=== PATIENT | male | born 1960 | race Caucasian/White ===

== ENCOUNTER 2025-06-26 17:30 | Emergency (ER) | payer OTHER ==
--- NOTE | 2025-06-26 18:23 | EDPHYS ---
Physician Documentation [facility] Name: Antony Bhagat Jr Age: 65 yrs Sex: Male : 1960 Arrival Date: 06/26/2025 Time: 17:30 Bed 4 Private MD: ED Physician Shadi Marie HPI: 06/26 17:53 This 65 yrs old Male presents to ER via Ambulatory with complaints of Leg Swelling. cr8 17:53 Patient is a 65-year-old male with a history of varicose veins that comes in emergency cr8 room complaining of left lower leg swelling. Reports several days ago he had a ruptured varicose vein. Reports it stopped bleeding. States he then went to his mother's house that she noticed his left lower leg was more swollen than the right. He denies pain. There is no warmth erythema or edema. No recent surgeries immobilization. Denies history of cancer. Ambulatory. Denies any traumatic injury. Neurovascular status intact distally.. Historical: - Allergies: 17:49 No Known Allergies; me1 - PMHx: 17:49 Hypercholesterolemia; me1 - PSHx: 17:49 Repair of inguinal hernia; bicep tendon repair; me1 - Immunization history:: Adult Immunizations up to date. - Infectious Disease History:: Denies. - Social history:: Smoking status: Patient denies any tobacco usage or history of. ROS: 17:53 Constitutional: as per HPI cr8 Exam: 17:53 Constitutional: This is a well developed, well nourished patient who is awake, alert, cr8 and in no acute distress. Skin: Warm, dry with normal turgor. Normal color with no rashes, no lesions, and no evidence of cellulitis. MS/ Extremity: Pulses equal, no cyanosis. Neurovascular intact. Full, normal range of motion. Left lower extremity is mildly larger than the left. No pitting edema. The edema is located to the left lateral calf region. No other edema noted on examination. Vascular status intact. He has diffuse varicose veins to bilateral feet and ankles. He has no warmth erythema. Homans' sign is negative. Neuro: Awake and alert, GCS 15, oriented to person, place, time, and situation. Cranial nerves II-XII grossly intact. Motor strength 5/5 in all extremities. Sensory grossly intact. Vital Signs: 17:47 BP 148 / 109; Pulse 81; Resp 16; Temp 98.2; Pulse Ox 97% ; Weight 95.25 kg; Height 6 me1 ft. 0 in. ; Pain 0/10; 18:41 BP 132 / 89; Pulse 75; Resp 18; Temp 97.9; Pulse Ox 99% on R/A; ph 17:47 Body Mass Index 28.48 (95.25 kg, 182.88 cm) me1 17:47 Pain Scale: Adult me1 MDM: 17:39 Medical Screening Exam initiated cr8 18:17 Data reviewed: vital signs, nurses notes, radiologic studies, doppler. Test considered cr8 but Not performed: Labs: Considered doing labs but he has no evidence of DVT on examination so labs will not be beneficial in this situation. ED course: Patient came in for left lower extremity edema/swelling. Differential includes DVT, chronic venous insufficiency, cellulitis, sprain strain, traumatic injury. Ordered a Doppler which was negative for acute DVT. On examination there is no evidence of cellulitis and there is no warmth erythema tenderness to palpation. Patient has no history of CHF so do not suspect CHF exacerbation or lymphedema. No emergent condition identified at time of discharge. Advised to wear stockings follow-up with PCP. Discussed strict return precautions.. 06/26 17:45 Order name: US Extremity Venous Unilateral Ltd; Complete Time: 19:01 cr8 Administered Medications: No medications were administered Disposition Summary: 06/26/25 18:22 Discharge Ordered Notes: Location: Home cr8 Condition: Stable cr8 Diagnosis - Varicose veins of left lower extremities with other complications cr8 - Localized edema cr8 Followup: cr8 - With: Private Physician - When: 1 week - Reason: Recheck today's complaints, Re-evaluation by your physician, Reevaluate your blood pressure and further treatment of your leg edema Followup: cr8 - With: Emergency Department - When: - Reason: If symptoms return, Trouble breathing, Worsening of condition, Chest pain Discharge Instructions: - Discharge Summary Sheet cr8 - Varicose Veins cr8 - Bleeding Varicose Veins cr8 - Peripheral Edema cr8 Forms: - Medication Reconciliation Form cr8 - Patient Portal Instructions cr8 - Leadership Thank You Letter cr8 Signatures: Dispatcher [employer] Nano Chong RN RN me1 [place], Christopher, [employer] INSTRUCTOR [employer] INSTRUCTOR cr8
--- NOTE | 2025-06-26 18:23 | ER ---
Nurse's Notes [facility] Name: Antony Bhagat Jr Age: 65 yrs Sex: Male : 1960 Arrival Date: 06/26/2025 Time: 17:30 Bed 4 Private MD: Diagnosis: Varicose veins of left lower extremities with other complications;Localized edema Presentation: 06/26 17:47 Chief complaint: Patient states: he had a vericose vein bust on his medial left lower me1 leg after a shower on Tuesday night. Able to get the bleeding to stop with pressure. Noticed today that he has some swelling to LLE. No redness, warmth or pain noted. Coronavirus screen: Vaccine status: Patient reports receiving the 2nd dose of the covid vaccine. Ebola Screen: No symptoms or risks identified at this time. Initial Sepsis Screen: Does the patient meet any 2 criteria? No. Patient's initial sepsis screen is negative. Does the patient have a suspected source of infection? No. Patient's initial sepsis screen is negative. Risk Assessment: Do you want to hurt yourself or someone else? Patient reports no desire to harm self or others. Onset of symptoms was June 22, 2025. 17:47 Method Of Arrival: Ambulatory wy1 17:47 Acuity: JIMBO 4 me1 Historical: - Allergies: 17:49 No Known Allergies; me1 - PMHx: 17:49 Hypercholesterolemia; me1 - PSHx: 17:49 Repair of inguinal hernia; bicep tendon repair; me1 - Immunization history:: Adult Immunizations up to date. - Infectious Disease History:: Denies. - Social history:: Smoking status: Patient denies any tobacco usage or history of. Screenin:55 [facility] ED Fall Risk Assessment (Adult) History of falling in the last 3 months, ph including since admission No falls in past 3 months (0 pts) Confusion or Disorientation No (0 pts) Intoxicated or Sedated No (0 pts) Impaired Gait No (0 pts) Mobility Assist Device Used No (0 pt) Altered Elimination No (0 pt) Score/Fall Risk Level 0 - 2 = Low Risk Oriented to surroundings, Maintained a safe environment, Hourly rounding (assess needs \T\ fall precautionary measures) done. Abuse screen: Denies threats or abuse. Denies injuries from another. Nutritional screening: No deficits noted. Tuberculosis screening: No symptoms or risk factors identified. Assessment: 17:55 General: Appears in no apparent distress. comfortable, well groomed, Behavior is calm, ph cooperative, appropriate for age. 17:59 Pain: Denies pain. Neuro: Level of Consciousness is awake, alert, obeys commands, ph Oriented to person, place, time, situation. Cardiovascular: Capillary refill < 3 seconds in bilateral fingers Patient's skin is warm and dry. Cardiovascular: Edema is 1+ to left midcalf and left ankle. Respiratory: Airway is patent Respiratory effort is even, unlabored. Derm: Skin is pink, warm \T\ dry. Musculoskeletal: Circulation, motion, and sensation intact. Range of motion: intact in all extremities. Vital Signs: 17:47 BP 148 / 109; Pulse 81; Resp 16; Temp 98.2; Pulse Ox 97% ; Weight 95.25 kg; Height 6 me1 ft. 0 in. ; Pain 0/10; 18:41 BP 132 / 89; Pulse 75; Resp 18; Temp 97.9; Pulse Ox 99% on R/A; ph 17:47 Body Mass Index 28.48 (95.25 kg, 182.88 cm) me1 17:47 Pain Scale: Adult me1 ED Course: 17:36 Patient arrived in ED. im 17:37 Kevin Gutierrez NP is PHCP. cr8 17:37 Shadi Marie MD is Attending Physician. cr8 17:48 Ruby Hernandez, RN is Primary Nurse. ph 17:49 Triage completed. me1 17:49 Arm band placed on Patient placed in an exam room. me1 17:55 Patient has correct armband on for positive identification. Placed in gown. Bed in low ph position. Call light in reach. Pulse ox on. NIBP on. Door closed. Noise minimized. Warm blanket given. 18:32 US Extremity Venous Unilateral Ltd In Process Unspecified. EDMS 18:41 No provider procedures requiring assistance completed. Patient did not have IV access ph during this emergency room visit. Administered Medications: No medications were administered Medication: 17:55 VIS not applicable for this client. ph Outcome: 18:22 Discharge ordered by . cr8 18:41 Discharged to home ambulatory, ph 18:41 Condition: good 18:41 Discharge instructions given to patient, Instructed on discharge instructions, follow up and referral plans. Demonstrated understanding of instructions, follow-up care, 18:42 Patient left the ED. ph Signatures: Dispatcher [employer] Ruby Soto RN RN Sara Geiger Michelle RN RN me1 Kevin Gutierrez NP [employer] cr8
--- NOTE | 2025-06-26 18:46 | RAD REPORT ---
Extremity Venous Uni Ltd CLINICAL INDICATION: Male, 65 years old.SWELLING TECHNIQUE: Complete duplex sonography of the lower extremity veins was performed of the affected limb . The examination included compression for vein patency, color Doppler imaging and flow augmentation in response to distal compression of the distal external iliac, common femoral, femoral, popliteal, peroneal, tibial and great saphenous veins. [id number]. COMPARISON: No prior exams FINDINGS: Duplex sonography imaging demonstrates all deep veins examined to be fully compressible with spontane ous, phasic and augmented flow in the affected limb. IMPRESSION: No evidence of deep venous thrombosis in the left lower extremity.
[2025-06-26 19:01] VITALS: BP 132/89; TEMP 97.9; O2SAT 99
== END 2025-06-26 18:42 | disposition home or self-care (01) ==
LOC: ER 17:30
DX: I83.892 Varicose veins of left lower extremity with other complications (principal); R60.0 Localized edema
CPT/HCPCS: 93971; 99283